=== PATIENT | female | born 1985 | race Caucasian/White ===

== ENCOUNTER 2017-07-27 03:18 | Emergency (ER) | payer SELFPAY ==
[~2017-07-27] VITALS: Ht 162.6 cm; Wt 68.2 kg
[2017-07-27 03:22] VITALS: TEMP 98.3
[2017-07-27 04:08] LABS: BASO # 0.1 (0.0-0.2); BASO % 1.5 % (0.0-2.0); EOS # 0.1 (0.0-0.7); EOS % 0.7 % (0-4.0); GRAN # 3.2 (1.4-6.5); GRAN % 46.7 % (42.2-75.2); HEMOGLOBIN 13.4 g/dl (12.5-16.0); LYMPH % 43.8 % (20.0-51.0); MEAN CELL VOLUME 89 fl (80.0-100.0); MEAN CORPUSCULAR HEMOGLOBIN 31 pg (27.0-31.0); MEAN CORPUSCULAR HGB CONC 34 g/dl (33.0-37.0); MEAN PLATELET VOLUME 9.6 fl (7.4-10.4); MONO # 0.5 (0.1-0.6); PLATELET COUNT 341 K/mm3 (130-400); RED BLOOD COUNT 4.38 M/mm3 (4.10-5.30); WHITE BLOOD COUNT 6.9 K/mm3 (4.8-10.8)
[2017-07-27 04:15] LABS: ADJUSTED CALCIUM 8.7 mg/dL (8.4-10.2); ALANINE AMINOTRANSFERASE 28 U/L (9-52); ALBUMIN 5.1 gm/dL (3.5-5.0); ALCOHOL(ethanol),MEDICAL 150 mg/dL; ALKALINE PHOSPHATASE 55 U/L (50-136); ANION GAP 15 mmol/L (7-16); BILIRUBIN,TOTAL 0.5 mg/dL (0.0-1.0); BLOOD UREA NITROGEN 6 mg/dL (7-17); CALCIUM 9.6 mg/dL (8.4-10.2); CARBON DIOXIDE 23 mmol/L (22-30); CHLORIDE 102 mmol/L (98-107); CREATININE, serum 0.84 mg/dL (0.52-1.25); GLUCOSE 101 mg/dL (74-106); POTASSIUM 3.9 mmol/L (3.4-5.0); SODIUM 139 mmol/L (137-145); TOTAL PROTEIN 8.4 gm/dL (6.4-8.2)
[2017-07-27 04:20] LABS: ACETAMINOPHEN < 10 ug/mL (10-30); SALICYLATE < 1.0 mg/dL
[2017-07-27 05:04] LABS: COLLECTION METHOD CLEAN CATCH
[2017-07-27 05:10] LABS: PH 6 (5-8); SQUAMOUS EPITHELIAL None Seen /hpf; URINE APPEARANCE Clear; URINE BACTERIA Rare /hpf; URINE BILIRUBIN Negative (NEGATIVE); URINE BLOOD Negative (NEGATIVE); URINE COLOR Straw; URINE GLUCOSE Negative (NEGATIVE); URINE KETONE Negative (NEGATIVE); URINE LEUKOCYTE ESTERASE Negative (NEGATIVE); URINE PROTEIN(semi-quant) Negative (NEGATIVE); URINE RBC 0-2 /hpf; URINE UROBILINOGEN Negative (NEGATIVE); URINE WBC 0-2 /hpf
[2017-07-27] MEDS ORDERED: ORTHO TRI-CYCLE1 TAB PO (05:16)
[2017-07-27] MEDS ORDERED: WELLBUTRIN 75MG75 MG PO (05:16)
[2017-07-27] MEDS ORDERED: LAMICTAL 25MG T25 MG PO (05:17)
[2017-07-27] MEDS ORDERED: KLONOPIN 1MG1 MG PO (05:18)
[2017-07-27 05:23] LABS: AMPHETAMINE URINE POSITIVE; BARBITURATES URINE NEGATIVE; BENZODIAZEPINES URINE NEGATIVE; BUPRENORPHINE URINE NEGATIVE; METHADONE URINE NEGATIVE; OPIATES URINE NEGATIVE; OXYCODONE URINE NEGATIVE; PHENCYCLIDINE URINE NEGATIVE; PROPOXYPHENE URINE NEGATIVE; THC CANNABINOIDS URINE NEGATIVE; TRICYCLIC ANTIDEPRESS URINE NEGATIVE
[2017-07-27 07:30] VITALS: BP 111/73; PULSE 116
== END 2017-07-27 07:31 | disposition home or self-care (01) ==
LOC: COL.ER 03:18
PROVIDERS: Emergency Medicine
DX: S61.512A Laceration without foreign body of left wrist, initial encounter (principal); F10.129 Alcohol abuse with intoxication, unspecified; F41.9 Anxiety disorder, unspecified; F31.9 Bipolar disorder, unspecified; X78.9XXA Intentional self-harm by unspecified sharp object, initial encounter; Y90.6 Blood alcohol level of 120-199 mg/100 ml

== ENCOUNTER → 2018-08-27 | Outpatient (CLI) | payer BC, OTHER ==
[~2018-08-27] MED LIST: ALPRAZOLAM; APRI 0.15 MG-0.1 TAB PO; BCP TD; FLUOXETINE20 MG PO; KLONOPIN 1MG1 MG PO; KLONOPIN1 MG PO; LAMICTAL 25MG T25 MG PO; ORTHO TRI-CYCLE1 TAB PO; RISPERDAL 1M1 MG/TAB PO; TEMAZEPAM PO; TRAZODONE HCL100 MG PO; WELLBUTRIN 75MG75 MG PO; XANAX0.25 MG PO
== END ==
LOC: BHSO 13:09
DX: F31.81 Bipolar II disorder (principal)
CPT/HCPCS: G0463

== ENCOUNTER → 2019-03-12 | Outpatient (CLI) | payer BC, OTHER | LOC: BHSO 15:06 | DX: F31.81 Bipolar II disorder (principal) | CPT/HCPCS: G0463 ==

== ENCOUNTER → 2019-07-30 | Outpatient (CLI) | payer SELFPAY | LOC: BHSO 16:03 | DX: F31.81 Bipolar II disorder (principal) | CPT/HCPCS: G0463 ==

== ENCOUNTER → 2019-09-08 | Outpatient (CLI) | payer SELFPAY | LOC: BHSO 15:55 | DX: F31.81 Bipolar II disorder (principal) | CPT/HCPCS: G0463 ==